=== PATIENT | female | born 1985 | race Asian ===

== ENCOUNTER 2020-06-14 04:30 | Day surgery (SDC) | payer OTHER ==
[2020-05-30 14:44] VITALS: BMI 36.3
[2020-06-14] MEDS ORDERED: IBUPROFEN 800 MG/8 ML IJ IVPB PRN (09:09)
[2020-06-14] MEDS ORDERED: IBUPROFEN 600 MG TABLET (FP) PO PRN (09:09)
[2020-06-14] MEDS ORDERED: ONDANSETRON 4 MG/2 ML VIAL IVPUSH PRN (09:09)
[2020-06-14] MEDS ORDERED: oxyCODONE HCL 5 MG TABLET PO PRN (09:09)
[2020-06-14] MEDS ORDERED: ELECTROLYTE-148 SOLN 1,000 ML IV SCH (09:15)
[2020-06-14] MEDS ORDERED: MIDAZOLAM HCL 2 MG/2 ML SINGLE DOSE VIAL ONE (11:27)
[2020-06-14] MEDS ORDERED: KETOROLAC TROMETHAMINE 30 MG/1 ML VIAL ONE (11:42)
[2020-06-14] MEDS ORDERED: LIDOCAINE HCL 2% JELLY (5 ML/TUBE) ONE (11:42)
[2020-06-14] MEDS ORDERED: DEXAMETHASONE SOD PHOSPHATE 4 MG/1 ML VIAL ONE (11:42)
[2020-06-14] MEDS ORDERED: GLYCOPYRROLATE 0.2 MG/1 ML VIAL ONE (11:42)
[2020-06-14] MEDS ORDERED: LIDOCAINE HCL/PF 2% SDV 5ML VIAL ONE (11:42)
[2020-06-14] MEDS ORDERED: PROMETHAZINE HCL 25 MG/1 ML VIAL IVPUSH PRN (12:12)
[2020-06-14] MEDS ORDERED: LACTATED RINGERS SOLUTION 1,000 ML IV SCH (12:15)
[2020-06-14 14:20] VITALS: BP 125/74; PULSE 90; TEMP 97.8
== END 2020-06-14 14:15 | disposition home or self-care (01) ==
LOC: JASU-SURG 04:30
PROVIDERS: ATTEND Obstetrics & Gynecology
PROC: 0UJD8ZZ Inspection of Uterus and Cervix, Via Natural or Artificial Opening Endoscopic (ICD-10-PCS; 2020-06-14)
PROC: 0UB97ZX Excision of Uterus, Via Natural or Artificial Opening, Diagnostic (ICD-10-PCS; principal; 2020-06-14 10:00)
PROC: 0UDB7ZX Extraction of Endometrium, Via Natural or Artificial Opening, Diagnostic (ICD-10-PCS; 2020-06-14 10:00)
DX: N92.0 Excessive and frequent menstruation with regular cycle (principal); N84.0 Polyp of corpus uteri
CPT/HCPCS: 84703; 94760

== ENCOUNTER 2021-04-04 04:13 | Day surgery (SDC) | payer OTHER ==
[2021-03-31 11:06] VITALS: BMI 35.4
[2021-04-04] MEDS ORDERED: SUCCINYLCHOLINE CHLORIDE 200 MG/10 ML SYRINGE ONE (07:39)
[2021-04-04] MEDS ORDERED: MIDAZOLAM HCL 2 MG/2 ML SINGLE DOSE VIAL ONE (07:39)
[2021-04-04] MEDS ORDERED: PROPOFOL 20 ML ONE ×3 (07:39)
[2021-04-04] MEDS ORDERED: oxyCODONE HCL 5 MG TABLET PO PRN (07:44)
[2021-04-04] MEDS ORDERED: IBUPROFEN 600 MG TABLET (FP) PO PRN (07:44)
[2021-04-04] MEDS ORDERED: IBUPROFEN 800 MG/8 ML IJ IVPB PRN (07:44)
[2021-04-04] MEDS ORDERED: ONDANSETRON 4 MG/2 ML VIAL IVPUSH PRN (07:44)
[2021-04-04] MEDS ORDERED: ELECTROLYTE-148 SOLN 1,000 ML IV SCH (07:45)
[2021-04-04] MEDS ORDERED: LACTATED RINGERS SOLUTION 1,000 ML IV SCH (08:15)
[2021-04-04 14:15] VITALS: BP 114/79; PULSE 78; TEMP 97.9
== END 2021-04-04 11:40 | disposition home or self-care (01) ==
LOC: JASU-SURG 04:13
PROVIDERS: ATTEND Obstetrics & Gynecology
PROC: 0UB98ZX Excision of Uterus, Via Natural or Artificial Opening Endoscopic, Diagnostic (ICD-10-PCS; principal; 2021-04-04 07:30)
PROC: 0UDB7ZZ Extraction of Endometrium, Via Natural or Artificial Opening (ICD-10-PCS; 2021-04-04 07:30)
DX: N84.0 Polyp of corpus uteri (principal)
CPT/HCPCS: 81025; 94760

== ENCOUNTER 2022-01-26 06:50 | Inpatient (IN) | payer OTHER ==
[2022-01-26] MEDS: ELECTROLYTE-148 SOLN 1,000 ML IV SCH (08:00)
[2022-01-26] MEDS ORDERED: BUTORPHANOL TARTRATE 1 MG/ML VIAL IVPB ONE (08:53)
[2022-01-26] MEDS ORDERED: AMPICILLIN - 2 GM in SODIUM CHLORIDE 100 ML IVPB ONE (08:56)
[2022-01-26] MEDS ORDERED: OXYTOCIN 30 UNITS in 0.9% NS 30 UNIT/500 ML INFUS.BAG IVPB SCH (09:00)
[2022-01-26 09:27] VITALS: BMI 36.5
[2022-01-26] MEDS ORDERED: AMPICILLIN SODIUM 2 GM VIAL ONE (10:02)
[2022-01-26] MEDS ORDERED: PROMETHAZINE HCL 25 MG/1 ML VIAL IVPB ONE (10:30)
[2022-01-26] MEDS ORDERED: BUTORPHANOL TARTRATE 2 MG/ML VIAL ONE (11:26)
[2022-01-26] MEDS ORDERED: PROMETHAZINE HCL 25 MG/1 ML VIAL ONE (11:27)
[2022-01-26] MEDS ORDERED: AMPICILLIN SODIUM 1 GM VIAL ONE ×3 (14:01→23:02)
[2022-01-26] MEDS: AMPICILLIN - 1 GM in SODIUM CHLORIDE 100 ML IVPB SCH ×3 (14:05→23:00)
[2022-01-26] MEDS ORDERED: FENTANYL/BUPIVACAINE/NS/PF - PCEA - 50 ML DISP.SYRIN EP ONE (21:46)
[2022-01-26] MEDS ORDERED: BUPIVACAINE HCL/PF 0.25% (2.5MG/ML) 10 ML VIAL ONE (22:10)
[2022-01-26] MEDS: FENTANYL/BUPIVACAINE/NS/PF - PCEA - 50 ML DISP.SYRIN EP SCH (22:30)
[2022-01-26] MEDS ORDERED: NALOXONE HCL 0.4 MG/ML VIAL IVPUSH PRN (22:34)
[2022-01-27] MEDS: ELECTROLYTE-148 SOLN 1,000 ML IV SCH (02:20)
[2022-01-27] MEDS: AMPICILLIN - 1 GM in SODIUM CHLORIDE 100 ML IVPB SCH ×2 (03:00→06:47)
[2022-01-27] MEDS ORDERED: FENTANYL/BUPIVACAINE/NS/PF - PCEA - 50 ML DISP.SYRIN EP ONE (03:18)
[2022-01-27] MEDS: FENTANYL/BUPIVACAINE/NS/PF - PCEA - 50 ML DISP.SYRIN EP SCH (03:20)
[2022-01-27] MEDS ORDERED: AMPICILLIN SODIUM 1 GM VIAL ONE (03:24)
[2022-01-27] MEDS ORDERED: OXYTOCIN 20 UNITS in 0.9% NS 20 UNIT/1,000 ML INFUS.BAG IV ONE (03:33)
[2022-01-27] MEDS ORDERED: BISACODYL 10 MG SUPP.RECT RC PRN (04:45)
[2022-01-27] MEDS ORDERED: WITCH HAZEL 50% (TUCKS) 40 PAD/JAR PAD TP PRN (04:45)
[2022-01-27] MEDS ORDERED: METHYLERGONOVINE MALEATE 0.2 MG/1 ML AMP IM PRN (04:45)
[2022-01-27] MEDS ORDERED: ACETAMINOPHEN 325 MG TABLET (FP) PO PRN (04:45)
[2022-01-27] MEDS ORDERED: OXYTOCIN 20 UNITS in 0.9% NS 20 UNIT/1,000 ML INFUS.BAG IV SCH (04:45)
[2022-01-27] MEDS ORDERED: BENZOCAINE 28 GM HEMORRHOIDAL OINTMENT TP PRN (04:45)
[2022-01-27] MEDS ORDERED: IBUPROFEN 600 MG TABLET (FP) PO ONE (05:48)
[2022-01-27] MEDS: IBUPROFEN 600 MG TABLET (FP) PO PRN ×3 (05:50→19:51)
[2022-01-27 06:30] LABS: CORD HCO3 19.2 mmHg (20-29); CORD PCO2 56.4 mmHg (30-78); CORD pH 7.149 (7.14-7.44)
[2022-01-27 06:31] LABS: CORD BASE EXCESS -8.5 mmol/L (0-2); CORD HCO3 20.1 mmHg (20-29); CORD PCO2 53.1 mmHg (30-78); CORD pH 7.197 (7.14-7.44)
[2022-01-27] MEDS: BENZOCAINE 20% 57 GM BOTTLE TP PRN ×2 (06:48→09:00)
[2022-01-27 17:59] VITALS: RESP 16
[2022-01-28] MEDS: IBUPROFEN 600 MG TABLET (FP) PO PRN ×2 (00:22→17:04)
[2022-01-28 08:35] LABS: BASO % 0.4 % (0-2.0); EOS % 1.2 % (0-4.5); HEMATOCRIT 24.5 % (32.4-45.2); HEMOGLOBIN 7.7 GM/dL (10.7-15.3); LYMPH % 14.8 % (8-40); MCH 20.9 pg (25.7-33.7); MCHC 31.4 g/dl (32.0-36.0); MEAN CELL VOLUME 66.6 fl (80-96); MEAN PLT VOLUME 9.4 fl (7.5-11.1); MONO % 5.5 % (3.8-10.2); NEUT % 78.1 % (42.8-82.8); PLATELET COUNT 219 10^3/uL (134-434); RBC 3.68 M/mm3 (3.60-5.2); RDW 17.5 % (11.6-15.6); WHITE BLOOD COUNT 12.9 K/mm3 (4.0-10.0)
[2022-01-28 21:46] VITALS: TEMP 98.7
[2022-01-28] MEDS ORDERED: SENNOSIDES/DOCUSATE COMBO (SENNA PLUS) TABLET (UD) PO PRN (22:00)
[2022-01-29] MEDS: IBUPROFEN 600 MG TABLET (FP) PO PRN (07:45)
[2022-01-29 11:35] VITALS: BP 118/85; PULSE 90
== END 2022-01-29 13:35 | disposition home or self-care (01) | DRG 560 ==
LOC: JLDR 06:50 → J3W 01-27 06:30 → UNDODISIN 01-28 11:20
PROVIDERS: ADMIT Obstetrics & Gynecology; ATTEND Obstetrics & Gynecology
PROC: 0W8NXZZ Division of Female Perineum, External Approach (ICD-10-PCS; principal; 2022-01-27)
PROC: 10E0XZZ Delivery of Products of Conception, External Approach (ICD-10-PCS; 2022-01-27)
DX: O99.214 Obesity complicating childbirth (principal); E66.9 Obesity, unspecified; O99.824 Streptococcus B carrier state complicating childbirth; O99.02 Anemia complicating childbirth; D64.9 Anemia, unspecified; Z3A.39 39 weeks gestation of pregnancy; Z37.0 Single live birth
CPT/HCPCS: 36415; 36600; 59409; 82803; 85025; 88307-TC

== ENCOUNTER 2022-10-02 04:18 | Day surgery (SDC) | payer OTHER ==
[2022-10-01 10:17] VITALS: BMI 33.6
[2022-10-02] MEDS ORDERED: MIDAZOLAM HCL 2 MG/2 ML SINGLE DOSE VIAL ONE (13:58)
[2022-10-02] MEDS ORDERED: PROPOFOL 20 ML ONE (13:58)
[2022-10-02] MEDS ORDERED: LIDOCAINE HCL/PF 2% SDV 5ML VIAL ONE (13:58)
[2022-10-02] MEDS ORDERED: DEXAMETHASONE SOD PHOSPHATE 4 MG/1 ML VIAL ONE (14:34)
[2022-10-02] MEDS ORDERED: ONDANSETRON 4 MG/2 ML VIAL ONE (14:34)
[2022-10-02] MEDS ORDERED: KETOROLAC TROMETHAMINE 30 MG/1 ML VIAL ONE (14:39)
[2022-10-02] MEDS ORDERED: ONDANSETRON 4 MG/2 ML VIAL IVPUSH PRN (15:21)
[2022-10-02] MEDS ORDERED: oxyCODONE HCL 5 MG TABLET PO PRN (15:21)
[2022-10-02] MEDS ORDERED: LACTATED RINGERS SOLUTION 1,000 ML IV SCH (15:30)
[2022-10-02] MEDS ORDERED: ACETAMINOPHEN 1000 MG/100 ML BAG IVPB PRN (15:31)
[2022-10-02 17:44] VITALS: TEMP 97.9
[2022-10-02 17:57] VITALS: BP 109/70; PULSE 70; RESP 18
== END 2022-10-02 17:38 | disposition home or self-care (01) ==
LOC: JASU-SURG 04:18
PROVIDERS: ATTEND Obstetrics & Gynecology
PROC: 0UB98ZZ Excision of Uterus, Via Natural or Artificial Opening Endoscopic (ICD-10-PCS; principal; 2022-10-02 13:00)
DX: N84.0 Polyp of corpus uteri (principal)
CPT/HCPCS: 81025; 88305-TC; 94760

== ENCOUNTER 2022-12-04 03:59 | Day surgery (SDC) | payer OTHER ==
[2022-11-30 11:38] VITALS: BMI 34.5
[2022-12-04] MEDS ORDERED: PROPOFOL 20 ML ONE (09:03)
[2022-12-04] MEDS ORDERED: MIDAZOLAM HCL 2 MG/2 ML SINGLE DOSE VIAL ONE (09:03)
[2022-12-04] MEDS ORDERED: LIDOCAINE HCL/PF 2% SDV 5ML VIAL ONE (09:04)
[2022-12-04] MEDS ORDERED: IBUPROFEN 800 MG/8 ML IJ IVPB PRN (09:07)
[2022-12-04] MEDS ORDERED: ONDANSETRON 4 MG/2 ML VIAL IVPUSH PRN ×2 (09:07→10:11)
[2022-12-04] MEDS ORDERED: oxyCODONE HCL 5 MG TABLET PO PRN (09:07)
[2022-12-04] MEDS ORDERED: IBUPROFEN 600 MG TABLET (FP) PO PRN (09:07)
[2022-12-04] MEDS ORDERED: ELECTROLYTE-148 SOLN 1,000 ML IV SCH (09:15)
[2022-12-04] MEDS ORDERED: DEXAMETHASONE SOD PHOSPHATE 4 MG/1 ML VIAL ONE (09:34)
[2022-12-04] MEDS ORDERED: SILVER NITRATE 75% APPLIC STCK 1 PKT EACH NR ONE (10:00)
[2022-12-04] MEDS ORDERED: ACETAMINOPHEN 1000 MG/100 ML BAG IVPB ONE (10:12)
[2022-12-04] MEDS ORDERED: LACTATED RINGERS SOLUTION 1,000 ML IV SCH (10:15)
[2022-12-04 12:30] VITALS: RESP 16
[2022-12-04 13:11] VITALS: BP 117/74; PULSE 90; TEMP 97.3
== END 2022-12-04 13:15 | disposition home or self-care (01) ==
LOC: JASU-SURG 03:59
PROVIDERS: ATTEND Obstetrics & Gynecology
PROC: 0UB98ZZ Excision of Uterus, Via Natural or Artificial Opening Endoscopic (ICD-10-PCS; principal; 2022-12-04 08:30)
DX: D25.9 Leiomyoma of uterus, unspecified (principal); N84.0 Polyp of corpus uteri; E66.01 Morbid (severe) obesity due to excess calories; N97.9 Female infertility, unspecified
CPT/HCPCS: 81025; 88305-TC; 94760

== ENCOUNTER 2023-03-31 15:52 | Emergency (ER) | payer OTHER ==
[2023-03-31 16:02] VITALS: BP 111/77; PULSE 89; RESP 20; TEMP 98.6; BMI 37.8
[2023-03-31] MEDS ORDERED: SODIUM CHLORIDE 1,000 ML IV STA (16:49)
[2023-03-31 17:14] LABS: BASO % 0.9 % (0-2.0); HEMOGLOBIN 11.2 GM/dL (10.7-15.3); LYMPH % 24.5 % (8-40); MCH 22.1 pg (25.7-33.7); MEAN CELL VOLUME 67.1 fl (80-96); MEAN PLT VOLUME 8.5 fl (7.5-11.1); MONO % 6.9 % (3.8-10.2); NEUT % 64.7 % (42.8-82.8); PLATELET COUNT 280 10^3/uL (134-434); RBC 5.07 M/mm3 (3.60-5.2); RDW 18.6 % (11.6-15.6); WHITE BLOOD COUNT 6.8 K/mm3 (4.0-10.0)
[2023-03-31 17:28] LABS: ACTIVATED PTT 33.2 SECONDS (25.2-36.5); PROTHROMBIN TIME (PATIENT) 11.6 SEC (9.7-13.0)
[2023-03-31 17:29] LABS: EPI CELLS 17 /uL (0-25.1); HCG,QUALITATIVE URINE Negative; HYALINE CASTS 0 /uL (0-3.1); URINE APPEARANCE CLEAR; URINE BACTERIA 294 /uL (0-1359); URINE BILIRUBIN NEGATIVE (NEGATIVE); URINE COLOR YELLOW; URINE GLUCOSE (UA) NEGATIVE (NEGATIVE); URINE KETONE NEGATIVE (NEGATIVE); URINE LEUK ESTERASE NEGATIVE (NEGATIVE); URINE NITRITE NEGATIVE (NEGATIVE); URINE PROTEIN NEGATIVE (NEGATIVE); URINE RBC 321 /uL (0-23.9); URINE UROBILINOGEN 0.2 mg/dL (0.2-1.0); URINE WBC 18 /uL (0-25.8)
[2023-03-31 17:36] LABS: POTASSIUM 4.4 mmol/L (3.5-5.1)
[2023-03-31 17:37] LABS: CALCIUM 8.6 mg/dL (8.5-10.1)
[2023-03-31 17:38] LABS: BLOOD UREA NITROGEN 13.7 mg/dL (7-18)
[2023-03-31 17:41] LABS: CREATININE 0.8 mg/dL (0.55-1.3)
== END 2023-03-31 19:35 | disposition home or self-care (01) ==
LOC: JER 15:52
PROC: 3E0337Z Introduction of Electrolytic and Water Balance Substance into Peripheral Vein, Percutaneous Approach (ICD-10-PCS; principal; 2023-03-31)
DX: O20.9 Hemorrhage in early pregnancy, unspecified (principal); O26.891 Other specified pregnancy related conditions, first trimester; R10.9 Unspecified abdominal pain; O23.91 Unspecified genitourinary tract infection in pregnancy, first trimester; R82.71 Bacteriuria; Z3A.10 10 weeks gestation of pregnancy
CPT/HCPCS: 36415; 76830-TC; 80048; 81003; 84702; 84703; 85025; 85610; 85730; 86850; 86900; 86901; 87077; 87086; 99284-25